=== PATIENT | female | born 1985 | race Caucasian/White ===

== ENCOUNTER 2020-08-06 07:23 | Day surgery (SDC) | payer OTHER ==
[~2020-08-06 07:23] MED LIST: Midazolam 1 MG/ML 2 ML SDV ONE; Propofol 200 MG/20 ML SDV ONE; fentaNYL 100 MCG/2 ML SDV ONE
[2020-08-06] MEDS ORDERED: Sodium Chloride 0.9% 1,000 ML IV SCH (08:00)
--- NOTE | 2020-08-06 14:40 | OR ---
DATE OF PROCEDURE: 08/06/2020 SURGEON: Randolph Traylor MD PROCEDURE: Colonoscopy. FINDINGS: No etiology for bleeding except for prominent internal hemorrhoid which was banded. COMPLICATION: None. DIRECTOR DIVERSITY: None. ANESTHESIA: MAC. PREOPERATIVE DIAGNOSIS: Gastrointestinal bleeding. POSTOPERATIVE DIAGNOSIS: Gastrointestinal bleeding. RISKS: Risks, benefits, alternatives, and limitations including, but not limited to infection, bleeding, perforation, false positives, and false negatives were explained to the patient, and they wished to proceed. PROCEDURE IN DETAIL: The patient was placed in left lateral decubitus position. Digital rectal exam was performed without abnormality. Scope was introduced and advanced atraumatically to the ileocecal valve. A photo was taken of this. The scope was brought back to the ascending, transverse, descending colon, and retroflexed. No evidence of old or new blood. No diverticulosis. No evidence of colitis. On retroflexion, the patient had 1 single prominent internal hemorrhoid which was subsequently banded without difficulty. The patient tolerated the procedure well. Greater than 8 minutes was spent removing the scope and the prep was acceptable, approximately 90% luminal surface could be seen. Randolph Traylor MD /[id number]
== END 2020-08-06 10:28 | disposition home or self-care (01) ==
LOC: JP.SDS 07:23
PROVIDERS: ATTEND Surgery
DX: K64.8 Other hemorrhoids (principal); E66.01 Morbid (severe) obesity due to excess calories; Z68.34 Body mass index [BMI] 34.0-34.9, adult
CPT/HCPCS: 81025; J2250; J2704; J3010; J7030

== ENCOUNTER 2021-06-11 04:37 | Emergency (ER) | payer BC ==
[2021-06-11] MEDS ORDERED: Labetalol 100 MG Tab PO ONE (05:49)
== END 2021-06-11 06:13 | disposition home or self-care (01) ==
LOC: JP.ED 04:37
DX: O16.1 Unspecified maternal hypertension, first trimester (principal); O99.341 Other mental disorders complicating pregnancy, first trimester; F41.1 Generalized anxiety disorder; Z77.22 Contact with and (suspected) exposure to environmental tobacco smoke (acute) (chronic); Z3A.01 Less than 8 weeks gestation of pregnancy
CPT/HCPCS: 36415; 80053; 81001; 83735; 85025; 99283; A9270

== ENCOUNTER 2022-09-09 15:48 | Emergency (ER) | payer BC | END 2022-09-09 18:36 | disposition home or self-care (01) | LOC: JP.ED 15:48 | DX: I10 Essential (primary) hypertension (principal); Z79.899 Other long term (current) drug therapy | CPT/HCPCS: 36415; 80048; 81001; 83735; 85025; 99283 ==